=== PATIENT | female | born 1980 | race Caucasian/White ===

== ENCOUNTER 2018-04-24 20:36 | Observation (INO) | payer OTHER ==
--- NOTE | 2018-04-24 22:42 | PDOC ---
History of Present Illness - General Chief Complaint: Alcohol intoxication Stated Complaint: INTOX Time Seen by Provider: 04/24/18 22:24 History Source: Patient, Spouse - History of Present Illness Initial Comments: 04/25/18 05:45 37-year-old female with history of alcohol abuse, substance abuse brought in by ambulance for evaluation of alcohol intoxication. Patient reports that she only had 3 drinks with coke, denies drinking regularly. Normocephalic no sign of head injury. Patient reports that she had a seizure activity 3 days ago as per patient which is unrelated to alcohol withdrawal.She needs to go to detox prior to returning home patient reports that she has no interest in going at this time.. 04/25/18 05:48 Past History - Past Medical History Allergies/Adverse Reactions: Allergies Allergy/AdvReac Type Severity Reaction Status Date / Time No Known Allergies Allergy Verified 04/24/18 22:44 Home Medications: Ambulatory Orders Buprenorphine HCl/Naloxone HCl [Suboxone 4 mg-1 mg Sl Film] 1 each SL TID Review of Systems - Review of Systems Able to Perform ROS?: Yes Is the patient limited Venezuelan proficient: No Psychiatric: Yes: Other (alcohol intoxication) *Physical Exam - Vital Signs 04/25/18 05:59 Last Vital Signs Temp Pulse Resp BP Pulse Ox 98.1 F 74 18 100/62 97 04/24/18 21:10 04/25/18 03:20 04/25/18 03:20 04/25/18 03:20 04/25/18 03:20 - Physical Exam General Appearance: Yes: Appropriately Dressed, Alcohol on Breath, Intoxicated, Other (slurr speech, ) Respiratory/Chest: positive: Lungs Clear, Normal Breath Sounds Gastrointestinal/Abdominal: positive: Normal Bowel Sounds, Soft. negative: Tender Musculoskeletal: positive: Normal Inspection Extremity: positive: Normal Capillary Refill, Normal Inspection, Normal Range of Motion Integumentary: positive: Normal Color, Dry, Warm, Ecchymosis (right upper arm) Neurologic: positive: Fully Oriented, Alert, Normal Mood/Affect ED Treatment Course - LABORATORY CBC & Chemistry Diagram: 04/25/18 00:28 04/25/18 00:28 Medical Decision Making - Medical Decision Making A: alcohol intoxication P: cbc cmp banana bag ua utox librium patient placed on Short stay obs 06/05/18 06:06 patient is asleep. 04/25/18 06:13 04/25/18 06:14 *DC/Admit/Observation/Transfer Diagnosis at time of Disposition: Alcohol intoxication Qualifiers: Complication of substance-induced condition: uncomplicated Qualified Code(s): F10.920 - Alcohol use, unspecified with intoxication, uncomplicated - Discharge Dispostion Condition at time of disposition: Fair Decision to Admit order: Yes - Referrals - Patient Instructions - Post Discharge Activity
[2018-04-24 22:44] VITALS: BMI 20.9
[2018-04-25] MEDS ORDERED: FOLIC ACID INJECTION - 1 MG, THIAMINE HCL 100 MG, MULTIVIT INJECTION ADULT 10 ML in SOD... IVPB ONE (00:23)
[2018-04-25 00:44] LABS: BASO % 0.9 % (0-2.0); EOS % 0.7 % (0-4.5); HEMATOCRIT 35.6 % (32.4-45.2); HEMOGLOBIN 12.3 GM/dL (10.7-15.3); LYMPH % 28.5 % (8-40); MCH 34.5 pg (25.7-33.7); MCHC 34.5 g/dl (32.0-36.0); MEAN PLT VOLUME 7.2 fl (7.5-11.1); MONO % 7.3 % (3.8-10.2); NEUT % 62.6 % (42.8-82.8); PLATELET COUNT 464 K/MM3 (134-434); RBC 3.56 M/mm3 (3.60-5.2); RDW 13.3 % (11.6-15.6); WHITE BLOOD COUNT 5.3 K/mm3 (4.0-10.0)
[2018-04-25 00:59] LABS: INR 1.04 (0.82-1.09); PROTHROMBIN TIME (PATIENT) 11.8 SEC (9.7-13.0)
[2018-04-25] MEDS ORDERED: chlordiazePOXIDE HCL 25 MG CAPSULE PO ONE (01:06)
[2018-04-25] MEDS ORDERED: chlordiazePOXIDE HCL 25 MG CAPSULE ONE (01:08)
[2018-04-25 01:09] LABS: ALBUMIN 3.6 g/dl (3.4-5.0); ANION GAP 8 (8-16); BILIRUBIN,TOTAL 0.3 mg/dL (0.2-1.0); BLOOD UREA NITROGEN 14 mg/dL (7-18); CALCIUM 8.4 mg/dL (8.5-10.1); CHLORIDE 106 mmol/L (98-107); CO2 31 mmol/L (21-32); CREATININE 0.6 mg/dL (0.55-1.02); GLUCOSE,RANDOM 98 mg/dL (74-106); POTASSIUM 4.4 mmol/L (3.5-5.1); SALICYLATE < 1.70 mg/dL; SGOT/AST 97 U/L (15-37); SGPT/ALT 58 U/L (12-78); SODIUM 145 mmol/L (136-145)
[2018-04-25 01:10] LABS: ALK PHOS 101 U/L (45-117)
[2018-04-25 01:11] LABS: ACETAMINOPHEN <2.0 ug/mL
[2018-04-25 07:06] VITALS: BP 105/69; PULSE 90; TEMP 98.3
--- NOTE | 2018-04-25 07:48 | HP ---
CHIEF COMPLAINT: " Alcohol intoxication" PCP: Dr. Fu (At [facility]) HISTORY OF PRESENT ILLNESS: Patient is a 37 year old female was brought in by her via EMS for "alcohol intoxication". As per the patient, she had three vodka drinks with soda yesterday and all of a sudden her "dad" called EMS and was brought in here. Patient mentions she was sitting comfortably in her couch prior to EMS arrival, didn't have any symptoms. Denies headache, loc, seizure, chest pain, sob, cough, palpitation, abdominal pain, nausea or vomiting. States that she has a h/o seizure dx during childhood, not on medication, last seizure was 1 week ago for which she was admitted at [facility], head CT was negative and was sent home as per the patient. Bowel/Bladder habit normal. Sleep/Appetite normal. Spoke with the patient's over the phone. He mentions that patient is an alcoholic, drinks vodka daily. About a week ago, she was at [facility] for alcohol withdrawal seizure, was admitted in ICU for 3-4 days. After discharging her home, she again started drinking alcohol daily, can drink a bottle of Vodka everyday. Yesterday, she was completely intoxicated hence brought in to the ED for further evaluation. Both patient and agrees for detox at [facility]. ER course was notable for: (1) Afebrile, hemodynamically stable, Utox- alcohol level- 393.6 (2) IV Banana bag, librium 50mg PO once Recent Travel: None PAST MEDICAL HISTORY: Alcohol abuse (was in rehab in 2016 for detox); Seizure not on meds; Anorexia Nervosa PAST SURGICAL HISTORY: L4-L5 removal in 2016; 1 Ceaserian section Social History: Smoking: Never smoked Alcohol: Started drinking since age 29; last drink yesterday; drinks twice a week. Drugs: Opiod dependence for back pain, now on suboxone. Family History: Non contributory Allergies No Known Allergies Allergy (Verified 04/24/18 22:44) HOME MEDICATIONS: Home Medications Medication Instructions Recorded Buprenorphine HCl/Naloxone HCl 1 each SL TID 04/24/18 [Suboxone 4 mg-1 mg Sl Film] REVIEW OF SYSTEMS CONSTITUTIONAL: Absent: fever, chills, diaphoresis, generalized weakness, malaise, loss of appetite, weight change HEENT: Absent: rhinorrhea, nasal congestion, throat pain, throat swelling, difficulty swallowing, mouth swelling, ear pain, eye pain, visual changes CARDIOVASCULAR: Absent: chest pain, syncope, palpitations, irregular heart rate, lightheadedness , peripheral edema RESPIRATORY: Absent: cough, shortness of breath, dyspnea with exertion, orthopnea, wheezing, stridor, hemoptysis GASTROINTESTINAL: Absent: abdominal pain, abdominal distension, nausea, vomiting, diarrhea, constipation, melena, hematochezia GENITOURINARY: Absent: dysuria, frequency, urgency, hesitancy, hematuria, flank pain, genital pain MUSCULOSKELETAL: Absent: myalgia, arthralgia, joint swelling, back pain, neck pain SKIN: Absent: rash, itching, pallor HEMATOLOGIC/IMMUNOLOGIC: Absent: easy bleeding, easy bruising, lymphadenopathy, frequent infections ENDOCRINE: Absent: unexplained weight gain, unexplained weight loss, heat intolerance, cold intolerance NEUROLOGIC: Absent: headache, focal weakness or paresthesias, dizziness, unsteady gait, seizure, mental status changes, bladder or bowel incontinence PSYCHIATRIC: Absent: anxiety, depression, suicidal or homicidal ideation, hallucinations. PHYSICAL EXAMINATION Vital Signs - 24 hr 04/24/18 04/25/18 04/25/18 21:10 03:20 07:06 Temperature 98.1 F 98.3 F Pulse Rate 97 H Pulse Rate [ 74 90 Right Apical] Respiratory 19 18 18 Rate Blood Pressure 121/82 Blood Pressure 100/62 105/69 [Right Arm] O2 Sat by Pulse 96 97 98 Oximetry (%) GENERAL: Young female, sitting comfortably in bed, Awake, alert, and fully oriented, in no acute distress. HEAD: Normal with no signs of trauma. EYES: EOM intact, no pallor or icterus. EARS, NOSE, THROAT: Ears normal. Dry mucous membranes. NECK: Supple. LUNGS: B/L Breath sounds equal, clear to auscultation bilaterally. No wheezes, and no crackles. No accessory muscle use. HEART: Regular rate and rhythm, normal S1 and S2 without murmur. ABDOMEN: Soft, nontender, not distended, normoactive bowel sounds, no guarding, no rebound, no masses. No hepatomegaly or splenomegaly. MUSCULOSKELETAL: Normal range of motion at all joints. No bony deformities or tenderness. No CVA tenderness. UPPER EXTREMITIES: 2+ pulses, warm, well-perfused. No cyanosis. No clubbing. No peripheral edema. LOWER EXTREMITIES: 2+ pulses, warm, well-perfused. No calf tenderness. No peripheral edema. NEUROLOGICAL: No facial droop, Cranial nerves II-XII intact. Normal speech. Normal gait. PSYCHIATRIC: Cooperative. Good eye contact. Appropriate mood and affect. SKIN: Warm, dry, normal turgor, no rashes or lesions noted, normal capillary refill. Laboratory Results - last 24 hr 04/25/18 04/25/18 04/25/18 00:28 00:28 00:28 WBC 5.3 RBC 3.56 L Hgb 12.3 Hct 35.6 MCV 100.0 H MCH 34.5 H MCHC 34.5 RDW 13.3 Plt Count 464 H MPV 7.2 L Absolute Neuts (auto) 3.3 Neutrophils % 62.6 Lymphocytes % 28.5 Monocytes % 7.3 Eosinophils % 0.7 Basophils % 0.9 Nucleated RBC % 0 PT with INR 11.80 INR 1.04 Sodium 145 Potassium 4.4 Chloride 106 Carbon Dioxide 31 Anion Gap 8 BUN 14 Creatinine 0.6 Creat Clearance w eGFR > 60 Random Glucose 98 Calcium 8.4 L Total Bilirubin 0.3 AST 97 H ALT 58 Alkaline Phosphatase 101 Total Protein 7.0 Albumin 3.6 Serum , Qual Salicylates Acetaminophen Alcohol, Quantitative 04/25/18 04/25/18 00:28 00:28 WBC RBC Hgb Hct MCV MCH MCHC RDW Plt Count MPV Absolute Neuts (auto) Neutrophils % Lymphocytes % Monocytes % Eosinophils % Basophils % Nucleated RBC % PT with INR INR Sodium Potassium Chloride Carbon Dioxide Anion Gap BUN Creatinine Creat Clearance w eGFR Random Glucose Calcium Total Bilirubin AST ALT Alkaline Phosphatase Total Protein Albumin Serum , Qual Negative Salicylates < 1.70 Acetaminophen <2.0 Alcohol, Quantitative 393.6 H* ASSESSMENT/PLAN: Patient is a 37 year old female with significant past medical history of alcohol abuse, seizure not on meds, anorexia was brought in by her dad via EMS for "alcohol intoxication". # Acute alcohol intoxication Alcohol level" 393.6 repeat Alcohol level 199 CIWA score- 4 at this time Received 1 banana bag and Librium 50mg PO once Admitted in Med-Surg/Obs Continue IV NS @ 83 mls/hr Watch for signs of withdrawal. If needed, will start her on Librium protocol Mg, Phos pending Accepted for detox at [facility] by Dr. Starks. Patient agrees. # Seizure- no seizure activity at this time. # Opiod dependence on Suboxone Takes Suboxone TID, awaiting for confirmation ( is bringing the prescription from home) Pt states she hasn't taken it since few days. # FEN IV NS @ 83 mls/hr Electrolytes WNL Regular diet # Prophylaxis For DVT: early ambulation For GI: Not indicated # Code Status: Full Code # Dispo: Pending [facility] admission. Illness, Investigation and Plan of care explained to the patient and her . They verbalized understanding. Case discussed with Dr. Bustos. Visit type - Emergency Visit Emergency Visit: Yes ED Registration Date: 04/25/18 Care time: The patient presented to the Emergency Department on the above date and was hospitalized for further evaluation of their emergent condition. - New Patient This patient is new to me today: Yes Date on this admission: 04/25/18 - Critical Care Critical Care patient: No Hospitalist Screening - Colonoscopy Questionnaire Colonoscopy Questionnaire: Colonoscopy Questionnaire - Patient: 50 - 75 years old and never had a screening colonoscopy: Unknown History of colon or rectal polyps, or CA: Unknown History of IBD, Crohn's disease or UC: Unknown History of abdominal radiation therapy as a child: Unknown - Relative: 1 with colon or rectal CA, or polyps at age 60 or younger: Unknown Colon or rectal CA diagnosed at age 45 or younger: Unknown Multiple relatives with colon or rectal CA: Unknown - Outcome: Screening Result: Negative Screen
[2018-04-25] MEDS ORDERED: SODIUM CHLORIDE 1,000 ML IV SCH (08:30)
--- NOTE | 2018-04-25 10:48 | DS ---
Physical Exam: SUBJECTIVE: Patient seen and examined at bed side. No complaints. Denies headache, dizziness, blurring of vision, chest pain, sob, cough, palpitation, abdominal pain, nausea or vomiting. Sleep/Appetite normal. OBJECTIVE: Vital Signs Period Temp Pulse Resp BP Sys/Mojica Pulse Ox Last 24 Hr 98.1 F-98.3 F 74-97 18-19 100-121/62-82 96-99 PHYSICAL EXAM GENERAL: Young female, sitting comfortably in bed, Awake, alert, and fully oriented, in no acute distress. HEAD: Normal with no signs of trauma. EYES: EOM intact, no pallor or icterus. EARS, NOSE, THROAT: Ears normal. Dry mucous membranes. NECK: Supple. LUNGS: B/L Breath sounds equal, clear to auscultation bilaterally. No wheezes, and no crackles. No accessory muscle use. HEART: Regular rate and rhythm, normal S1 and S2 without murmur. ABDOMEN: Soft, nontender, not distended, normoactive bowel sounds, no guarding, no rebound, no masses. No hepatomegaly or splenomegaly. MUSCULOSKELETAL: Normal range of motion at all joints. No bony deformities or tenderness. No CVA tenderness. UPPER EXTREMITIES: 2+ pulses, warm, well-perfused. No cyanosis. No clubbing. No peripheral edema. LOWER EXTREMITIES: 2+ pulses, warm, well-perfused. No calf tenderness. No peripheral edema. NEUROLOGICAL: No facial droop, Cranial nerves II-XII intact. Normal speech. Normal gait. PSYCHIATRIC: Cooperative. Good eye contact. Appropriate mood and affect. SKIN: Warm, dry, normal turgor, no rashes or lesions noted, normal capillary refill. LABS Laboratory Results - last 24 hr 04/25/18 04/25/18 04/25/18 00:28 00:28 00:28 WBC 5.3 RBC 3.56 L Hgb 12.3 Hct 35.6 MCV 100.0 H MCH 34.5 H MCHC 34.5 RDW 13.3 Plt Count 464 H MPV 7.2 L Absolute Neuts (auto) 3.3 Neutrophils % 62.6 Lymphocytes % 28.5 Monocytes % 7.3 Eosinophils % 0.7 Basophils % 0.9 Nucleated RBC % 0 PT with INR 11.80 INR 1.04 Sodium 145 Potassium 4.4 Chloride 106 Carbon Dioxide 31 Anion Gap 8 BUN 14 Creatinine 0.6 Creat Clearance w eGFR > 60 Random Glucose 98 Calcium 8.4 L Total Bilirubin 0.3 AST 97 H ALT 58 Alkaline Phosphatase 101 Total Protein 7.0 Albumin 3.6 Serum , Qual Salicylates Acetaminophen Alcohol, Quantitative 04/25/18 04/25/18 00:28 00:28 WBC RBC Hgb Hct MCV MCH MCHC RDW Plt Count MPV Absolute Neuts (auto) Neutrophils % Lymphocytes % Monocytes % Eosinophils % Basophils % Nucleated RBC % PT with INR INR Sodium Potassium Chloride Carbon Dioxide Anion Gap BUN Creatinine Creat Clearance w eGFR Random Glucose Calcium Total Bilirubin AST ALT Alkaline Phosphatase Total Protein Albumin Serum , Qual Negative Salicylates < 1.70 Acetaminophen <2.0 Alcohol, Quantitative 393.6 H* HOSPITAL COURSE: Date of Admission:04/25/18 Date of Discharge: 04/25/18 Patient is a 37 year old female with significant past medical history of alcohol abuse, seizure not on meds, anorexia, chronic back pain was brought in by via EMS for "alcohol intoxication". Spoke with the patient's over the phone. He mentions that patient is an alcoholic, drinks vodka daily. About a week ago, she was at [place] for alcohol withdrawal seizure, was admitted in ICU for 3-4 days. After discharging her home, she started drinking alcohol daily, can drink a bottle of Vodka. Yesterday, she was completely intoxicated hence brought in to the ED for further evaluation. Review of symptoms negative. No suicidal ideation at this time. Both patient and agrees for detox at [facility]. On arrival to the ED, vital signs were stable. Alcohol level was 393, AST was 97. Rest of the labs were unremarkable. Was given 1 banana bag and Librium 50mg PO once in the ED. Repeat alcohol level is 199. CIWA score was 4. Spoke with Dr. Early at [facility]. He recommended to send the patient to [facility] for further evaluation and would detox if needed. Patient also has h/o opiod dependence for chronic back pain on Suboxone TID. Awaiting for to bring the prescription for confirmation. Illness, Investigation and Plan of care explained to the patient and her . They verbalized understanding. Case discussed with Dr. Bustos. Minutes to complete discharge: 45 Discharge Summary Reason For Visit: ALCOHOLIC INTOXIFICATION Current Active Problems Alcohol intoxication (Acute) Condition: Fair - Instructions Diet, Activity, Other Instructions: You were admitted for alcohol intoxication. We are sending you to [facility], they will reevaluate you for detox. Please stop taking alcohol as it causes adverse effects on your health. Return to the ED immediately if you develop any new symptoms. Follow up with PCP in a week after you get discharged from [facility]. Disposition: HOME - Home Medications Comprehensive Discharge Medication List: Ambulatory Orders Buprenorphine HCl/Naloxone HCl [Suboxone 4 mg-1 mg Sl Film] 1 each SL TID This patient is new to me today: Yes Date on this admission: 04/25/18 Emergency Visit: Yes ED Registration Date: 04/25/18 Care time: The patient presented to the Emergency Department on the above date and was hospitalized for further evaluation of their emergent condition. Critical Care patient: No - Discharge Referral Referred to [facility] Med P.C.: No
[2018-04-25 15:04] LABS: MAGNESIUM 2.1 mg/dL (1.8-2.4); PHOSPHOROUS 3.4 mg/dL (2.5-4.9)
[2018-04-25 15:52] LABS: MAGNESIUM 2.2 mg/dL (1.8-2.4); PHOSPHOROUS 4.8 mg/dL (2.5-4.9)
--- NOTE | 2018-04-25 17:53 | PN ---
Teaching Attending Note Name of Resident: Cinthya North ATTENDING PHYSICIAN STATEMENT I saw and evaluated the patient. I reviewed the resident's note and discussed the case with the resident. I agree with the resident's findings and plan as documented with exceptions below. SUBJECTIVE: 37 yof with PMHx of ETOH abuse, admitted for alcohol detox. Currently ambulating in the ED, awaiting transfer to detox center. 12 point ROS done, neg for fevers, chills, abdominal pain, nausea, vomiting, tremors, anxiety, chest pain, palpitations, dyspnea, dizziness or new concerns. OBJECTIVE: Vital Signs Period Temp Pulse Resp BP Sys/Mojica Pulse Ox Last 24 Hr 98.1 F-98.3 F 74-97 18-19 100-121/62-82 96-99 Intake & Output 04/22/18 04/23/18 04/24/18 04/25/18 23:59 23:59 23:59 23:59 Weight 130 lb GENERAL: Awake, alert, and fully oriented, in no acute distress. HEAD: Normal with no signs of trauma. EYES: Pupils equal, round and reactive to light, extraocular movements intact, sclera anicteric, conjunctiva clear. No lid lag. EARS, NOSE, THROAT: Ears normal, nares patent, oropharynx clear without exudates. Moist mucous membranes. NECK: soft, supple LUNGS: Breath sounds equal, clear to auscultation bilaterally. No wheezes, and no crackles. No accessory muscle use. HEART: S1S2 regular. ABDOMEN: Soft, nontender, not distended, normoactive bowel sounds, no guarding, no rebound MUSCULOSKELETAL: Normal range of motion at all joints. No bony deformities or tenderness. No CVA tenderness. UPPER EXTREMITIES: 2+ pulses, warm, well-perfused. No cyanosis. No clubbing. No peripheral edema. LOWER EXTREMITIES: 2+ pulses, warm, well-perfused. No calf tenderness. No peripheral edema. NEUROLOGICAL: Cranial nerves II-XII intact. Normal speech. Normal gait. PSYCHIATRIC: Cooperative. Good eye contact. Appropriate mood and affect. SKIN: Warm, dry, normal turgor, no rashes or lesions noted, normal capillary refill. Home Medications Medication Instructions Recorded Buprenorphine HCl/Naloxone HCl 1 each SL TID 04/24/18 [Suboxone 4 mg-1 mg Sl Film] Laboratory Results - last 24 hr 04/25/18 04/25/18 04/25/18 00:28 00:28 00:28 WBC 5.3 RBC 3.56 L Hgb 12.3 Hct 35.6 MCV 100.0 H MCH 34.5 H MCHC 34.5 RDW 13.3 Plt Count 464 H MPV 7.2 L Absolute Neuts (auto) 3.3 Neutrophils % 62.6 Lymphocytes % 28.5 Monocytes % 7.3 Eosinophils % 0.7 Basophils % 0.9 Nucleated RBC % 0 PT with INR 11.80 INR 1.04 Sodium 145 Potassium 4.4 Chloride 106 Carbon Dioxide 31 Anion Gap 8 BUN 14 Creatinine 0.6 Creat Clearance w eGFR > 60 Random Glucose 98 Calcium 8.4 L Phosphorus 4.8 Magnesium 2.2 Total Bilirubin 0.3 AST 97 H ALT 58 Alkaline Phosphatase 101 Total Protein 7.0 Albumin 3.6 Serum , Qual Salicylates Acetaminophen Alcohol, Quantitative 04/25/18 04/25/18 04/25/18 00:28 00:28 00:28 WBC RBC Hgb Hct MCV MCH MCHC RDW Plt Count MPV Absolute Neuts (auto) Neutrophils % Lymphocytes % Monocytes % Eosinophils % Basophils % Nucleated RBC % PT with INR INR Sodium Potassium Chloride Carbon Dioxide Anion Gap BUN Creatinine Creat Clearance w eGFR Random Glucose Calcium Phosphorus Magnesium Cancelled Total Bilirubin AST ALT Alkaline Phosphatase Total Protein Albumin Serum , Qual Negative Salicylates < 1.70 Acetaminophen <2.0 Alcohol, Quantitative 393.6 H* 04/25/18 04/25/18 00:28 09:50 WBC RBC Hgb Hct MCV MCH MCHC RDW Plt Count MPV Absolute Neuts (auto) Neutrophils % Lymphocytes % Monocytes % Eosinophils % Basophils % Nucleated RBC % PT with INR INR Sodium Potassium Chloride Carbon Dioxide Anion Gap BUN Creatinine Creat Clearance w eGFR Random Glucose Calcium Phosphorus Cancelled 3.4 Magnesium 2.1 Total Bilirubin AST ALT Alkaline Phosphatase Total Protein Albumin Serum , Qual Salicylates Acetaminophen Alcohol, Quantitative 199.7 H* ASSESSMENT AND PLAN: 37 yof for ETOH detox -ETOH abuse/dependence -Alcohol withdrawal -Opioid dependence Plan: no active concerns for withdrawal, ambulating well. Librium detox. Discussed with [facility], accepted for transfer. dc to [facility] today. Plan discussed with patient in detail, all questions answered. Total time spent 65 min.
== END 2018-04-25 13:30 | disposition home or self-care (01) ==
LOC: JER 20:36 → JERBED 04-25 01:05
PROVIDERS: ADMIT Internal Medicine; ATTEND Hospitalist
PROC: 3E033GC Introduction of Other Therapeutic Substance into Peripheral Vein, Percutaneous Approach (ICD-10-PCS; principal; 2018-04-25)
DX: F10.129 Alcohol abuse with intoxication, unspecified (principal); G40.909 Epilepsy, unspecified, not intractable, without status epilepticus
CPT/HCPCS: 36415; 80053; 80307; 83735; 84100; 84703; 85025; 85610; 96365; 96366; 99284-25; G0378; J7030

== ENCOUNTER 2018-04-25 15:53 | Inpatient (IN) | payer OTHER ==
[2018-04-25 18:55] VITALS: BMI 18.9
--- NOTE | 2018-04-25 20:02 | HP ---
CIWA Score - CIWA Score Nausea/Vomitin-No Nausea/No Vomiting Muscle Tremors: 2 Anxiety: 3 Agitation: 3 Paroxysmal Sweats: 2 Orientation: 0-Oriented Tacttile Disturbances: 2-Mild Itch/Numbness/Burn Auditory Disturbances: 0-None Visual Disturbances: 0-None Headache: 0-None Present CIWA-Ar Total Score: 12 Admission ROS S - HPI Chief Complaint: " I need to get family back together, I've drinking non-stop" Allergies/Adverse Reactions: Allergies Allergy/AdvReac Type Severity Reaction Status Date / Time No Known Allergies Allergy Verified 04/24/18 22:44 History of Present Illness: Patient is a 37 year old female with hx of alcohol dependence comes in today after evaluated at [facility] for alcohol intoxication, as per patient she states that she has a h/o seizure dx during childhood, not on medication, last seizure , alcohol related was 1 week ago and hit her head, was admitted at [facility] for 3-4 days, upon discharge patient continues to drink daily. PMHX: hx of eating disorder, anxiety, depression, chronic pain, panic attacks. Denies suicidal / homicidal ideation. Denies hx of suicide attempts. Patient also goes by shania last name CHRISTINA Search Terms: curtis fuentes, 1980 Search Date: 04/25/2018 07:53:12 PM The Drug Utilization Report below displays all of the controlled substance prescriptions, if any, that your patient has filled in the last twelve months. The information displayed on this report is compiled from pharmacy submissions to the Department, and accurately reflects the information as submitted by the pharmacies. This report was requested by: Sasha Harrison | Reference #: [id number] Others' Prescriptions Patient Name: Curtis Fuentes Date: 1980 Address: [address] [place] [address] [address] [place] [address] Sex: Female Rx Written Rx Dispensed Drug Quantity Days Supply Prescriber Name 04/21/2018 04/21/2018 suboxone 8 mg-2 mg sl film 90 30 Andrea Rodriguez MD 03/23/2018 03/29/2018 suboxone 8 mg-2 mg sl film 42 14 Andrea Rodriguez MD 03/17/2018 03/20/2018 suboxone 8 mg-2 mg sl film 21 7 Andrea Rodriguez MD Patient Name: Curtis Fuentes Date: 1980 Address: [address] [place] [id number] Sex: Female Rx Written Rx Dispensed Drug Quantity Days Supply Prescriber Name 03/20/2018 03/21/2018 oxycodone hcl 20 mg tablet 120 30 ShCarlee horta S 02/23/2018 03/01/2018 oxycodone hcl 30 mg tablet 90 30 Shue, Carlee S 02/20/2018 02/20/2018 oxycodone hcl 30 mg tablet 12 4 Jorge L Reeves) 02/20/2018 02/20/2018 clonazepam 0.5 mg tablet 28 14 Jorge L Reeves) Patient Name: Curtis Fuentes Date: 1980 Address: [address] [place] [id number] Sex: Female Rx Written Rx Dispensed Drug Quantity Days Supply Prescriber Name 03/03/2018 03/09/2018 clonazepam 0.5 mg tablet 20 20 Arin Hawley MD 12/12/2017 12/12/2017 zolpidem tartrate 10 mg tablet 30 30 Jeremias Wilcox MD 12/12/2017 12/12/2017 alprazolam 0.25 mg tablet 90 30 Jeremias Wilcox MD Exam Limitations: No Limitations - Ebola screening Have you traveled outside of the country in the last 21 days: No Have you had contact with anyone from an Ebola affected area: No Have you been sick,other than usual withdrawal symptoms: No Do you have a fever: No - Review of Systems Constitutional: Chills, Loss of Appetite, Changes in sleep, Unintentional Wgt. Loss EENT: reports: No Symptoms Reported Respiratory: reports: No Symptoms reported Cardiac: reports: No Symptoms Reported GI: reports: Poor Appetite, Poor Fluid Intake : reports: No Symptoms Reported Musculoskeletal: reports: Back Pain Integumentary: reports: No Symptoms Reported Neuro: reports: See HPI, Seizure Endocrine: reports: Increased Thirst Hematology: reports: No Symptoms Reported Psychiatric: reports: Orientated x3, Anxious Other Systems: Reviewed and Negative Patient History - Patient Medical History Hx Anemia: No Hx Asthma: No Hx Chronic Obstructive Pulmonary Disease (COPD): No Hx Cancer: No Hx Cardiac Disorders: No Hx Congestive Heart Failure: No Hx Hypertension: No Hx Hypercholesterolemia: No Hx Pacemaker: No HX Cerebrovascular Accident: No Hx Seizures: Yes (alcohol related last episode a week ago ) Hx Dementia: No Hx Diabetes: No Hx Gastrointestinal Disorders: No Hx Liver Disease: No Hx Genitourinary Disorders: No Hx Sexually Transmitted Disorders: No Hx Renal Disease (ESRD): No Hx Thyroid Disease: No Hx Human Immunodeficiency Virus (HIV): No Hx Hepatitis C: No Hx Depression: Yes Hx Suicide Attempt: No Hx Bipolar Disorder: No Hx Schizophrenia: No - Patient Surgical History Past Surgical History: Yes Hx Neurologic Surgery: No Hx Cataract Extraction: No Hx Cardiac Surgery: No Hx Lung Surgery: No Hx Breast Surgery: No Hx Breast Biopsy: No Hx Abdominal Surgery: No Hx Appendectomy: No Hx Cholecystectomy: No Hx Genitourinary Surgery: No Hx Section: No Hx Orthopedic Surgery: Yes (Distectomy ) Hx Hysterectomy: No Anesthesia Reaction: No - PPD History Previous Implant?: No Documented Results: Negative w/o proof Implanted On Prior R Admission?: No PPD to be Administered?: Yes - Reproductive History Patient is a Female of Child Bearing Age (11 -55 yrs old): Yes Patient : No - Smoking Cessation Smoking history: Never smoked Have you smoked in the past 12 months: No Hx Chewing Tobacco Use: No Initiated information on smoking cessation: No - Substance & Tx. History Hx Alcohol Use: Yes Hx Substance Use: Yes Substance Use Type: Alcohol Hx Substance Use Treatment: No - Substances Abused Alcohol Route: Oral Frequency: Daily Amount used: liquor- 1/2 pint, Age of first use: 36 Date of Last Use: 04/24/18 Family Disease History - Family Disease History Family History: Unable to Obtain Admission Physical Exam BHS - Vital Signs Vital Signs: Vital Signs - 24 hr 04/25/18 18:53 Temperature 98.7 F Pulse Rate 83 Respiratory 18 Rate Blood Pressure 139/93 - Physical General Appearance: Yes: No Apparent Distress, Nourished, Appropriately Dressed , Tremorous, Sweating, Anxious HEENTM: Yes: EOMI, Hearing grossly Normal, Normal ENT Inspection, Normocephalic , Normal Voice, JANENE, Pharynx Normal, Tm's normal Respiratory: Yes: Chest Non-Tender, Lungs Clear, Normal Breath Sounds, No Respiratory Distress, No Accessory Muscle Use Neck: Yes: No masses,lesions,Nodules, Trachea in good position Breast: Yes: Breast Exam Deferred Cardiology: Yes: Regular Rhythm, Regular Rate Abdominal: Yes: Normal Bowel Sounds, Non Tender, Flat, Soft Genitourinary: Yes: Within Normal Limits Back: Yes: Normal Inspection Musculoskeletal: Yes: full range of Motion, Gait Steady, Pelvis Stable Extremities: Yes: Normal Capillary Refill, Normal Inspection, Normal Range of Motion, Non-Tender Neurological: Yes: service clerk II-XII NML intact, Fully Oriented, Alert, Motor Strength 5/5, Depressed Affect (tearful duirng assessment) Integumentary: Yes: Normal Color, Warm, Diaphoresis Lymphatic: Yes: Within Normal Limits - Diagnostic (1) Alcohol dependence with withdrawal Current Visit: Yes Status: Acute Qualifiers: Complication of substance-induced condition: uncomplicated Qualified Code(s ): F10.230 - Alcohol dependence with withdrawal, uncomplicated (2) Opioid dependence on agonist therapy Current Visit: Yes Status: Acute Comment: On suboxone 8mg TID (3) Chronic back pain Current Visit: Yes Status: Chronic (4) Anxious mood Current Visit: Yes Status: Acute Cleared for Admission [facility] - Detox or Rehab [facility] Level of Care: Medically Managed Detox Regimen/Protocol: Librium [facility] Breath Alcohol Content Breath Alcohol Content: 0 Urine Pregancy Test - Result Urine Test Results: Negative- NO Line Present Urine Drug Screen - Results Drug Screen Negative: No Urine Drug Screen Results: BZO-Benzodiazepines
[2018-04-25] MEDS ORDERED: NICOTINE POLACRILEX 2 MG GUM BUC PRN (20:50)
[2018-04-25] MEDS ORDERED: P-EPHED 60MG/TRIPROLIDI 2.5MG TABLET PO PRN (20:50)
[2018-04-25] MEDS ORDERED: chlordiazePOXIDE HCL 25 MG CAPSULE PO ONE (20:50)
[2018-04-25] MEDS ORDERED: LOPERAMIDE HCL 2 MG CAPSULE PO PRN (20:50)
[2018-04-25] MEDS ORDERED: MENTHOL/PHENOL 1 EACH UD MM PRN (20:50)
[2018-04-25] MEDS ORDERED: IBUPROFEN 400 MG TABLET (FP) PO PRN (20:50)
[2018-04-25] MEDS ORDERED: MAGNESIUM HYDROX 2400MG/30ML ORAL SUSPENSION 30 ML CUP PO PRN (20:50)
[2018-04-25] MEDS ORDERED: MAGNESIUM CITRATE 300 ML BOTTLE PO PRN (20:50)
[2018-04-25] MEDS ORDERED: MAG HYDROX/AL HYDROX/SIMETH 30 ML UNIT-DOSE CUP PO PRN (20:50)
[2018-04-25] MEDS ORDERED: guaiFENesin/D-METHORPHAN HB 10 ML UNIT-DOSE CUPS PO PRN (20:50)
[2018-04-25] MEDS ORDERED: chlordiazePOXIDE HCL 25 MG CAPSULE PO PRN (20:50)
[2018-04-25] MEDS ORDERED: GLYCERIN 1 RECTAL SUPPOSITORY, ADULT RC PRN (20:58)
[2018-04-25] MEDS ORDERED: MELATONIN 5 MG TABLETS PO PRN (22:00)
[2018-04-26] MEDS: chlordiazePOXIDE HCL 25 MG CAPSULE PO SCH ×5 (01:36→22:24)
[2018-04-26] MEDS: BUPRENORPHINE/NALOXONE 8 MG/2 MG FILM PACKET SL SCH ×4 (01:37→22:24)
[2018-04-26] MEDS: THIAMINE HCL 100 MG TABLET (FP) PO SCH ×2 (01:37→22:24)
--- NOTE | 2018-04-26 07:31 | CONSULT ---
[facility] Psychiatric Consult - Data Date of interview: 04/26/18 Admission source: [facility] Identifying data: This is a 37 year old female, , mother of three, living with family, unemployed on SSD, with no psychiatric hospitalization history, with history of alcohol dependence, seeking for detox, reports Alcohol wotudrawal symptoms. Reports currently on Suboxone 8mg po tid . Substance Abuse History: - Smoking Cessation. Smoking history: Never smoked. Have you smoked in the past 12 months: No. Hx Chewing Tobacco Use: No. Initiated information on smoking cessation: No. - Substance & Tx. History. Hx Alcohol Use: Yes. Hx Substance Use: Yes. Substance Use Type: Alcohol. Hx Substance Use Treatment: No. - Substances Abused. Alcohol. Route: Oral. Frequency: Daily. Amount used: liquor- 1/2 pint,. Age of first use: 36. Date of Last Use: 04/24/18 Medical History: LBP, Seizure history Psychiatric History: Patient reports history of depression and anxiety, panic attacks issues, reports no history of psychiatric hospitalizations, reports taking prior to admission: Zoloft 100mg po qhs, asking medications for anxiety, . Patient reports taking prior to admission Suboxone 8mg po tid. Physical/Sexual Abuse/Trauma History: Denies Additional Comment: Zoloft 100mg po qhs Mental Status Exam - Mental Status Exam Alert and Oriented to: Person Cognitive Function: Fair Patient Appearance: Unkempt Mood: Anxious Affect: Mood Congruent Patient Behavior: Cooperative Speech Pattern: Appropriate Voice Loudness: Normal Thought Process: Goal Oriented Thought Disorder: Being Controlled Hallucinations: Denies Suicidal Ideation: Denies Homicidal Ideation: Denies Insight/Judgement: Fair Sleep: Difficulty falling asleep Appetite: Fair Muscle strength/Tone: Mild Hypertonicity Gait/Station: Normal Additional Comments: Zoloft 100mg po qhs Psychiatric Findings - Problem List ([place] 1, 2,3) (1) Alcohol dependence with withdrawal Current Visit: Yes Status: Acute Qualifiers: Complication of substance-induced condition: uncomplicated Qualified Code(s ): F10.230 - Alcohol dependence with withdrawal, uncomplicated (2) Anxious mood Current Visit: Yes Status: Acute (3) Opioid dependence on agonist therapy Current Visit: Yes Status: Acute Comment: On suboxone 8mg TID (4) Alcohol intoxication Current Visit: No Status: Acute Qualifiers: Complication of substance-induced condition: uncomplicated Qualified Code(s ): F10.920 - Alcohol use, unspecified with intoxication, uncomplicated - Initial Treatment Plan Initial Treatment Plan: Zoloft 100mg po qhs. Vistaril 50mg po prn q4 for anxiety and agitation.
[2018-04-26 10:22] LABS: HEMATOCRIT 32.3 % (32.4-45.2); HEMOGLOBIN 11.1 GM/dL (10.7-15.3); MCH 34.7 pg (25.7-33.7); MCHC 34.2 g/dl (32.0-36.0); MEAN CELL VOLUME 101.3 fl (80-96); MEAN PLT VOLUME 8.1 fl (7.5-11.1); PLATELET COUNT 335 K/MM3 (134-434); RBC 3.19 M/mm3 (3.60-5.2); RDW 12.9 % (11.6-15.6); WHITE BLOOD COUNT 5.2 K/mm3 (4.0-10.0)
[2018-04-26] MEDS: PRENATAL VITAMINS W/ FOLIC ACID TABLET (FP) PO SCH (10:36)
[2018-04-26] MEDS: NICOTINE 14 MG/24 HOURS TOPICAL PATCH TD SCH (10:36)
[2018-04-26] MEDS: hydrOXYzine PAMOATE 50 MG CAPSULE (FP) PO PRN ×2 (10:37→22:27)
--- NOTE | 2018-04-26 11:06 | PN ---
S CIWA - CIWA Score Nausea/Vomitin Muscle Tremors: 3 Anxiety: 2 Agitation: 2 Paroxysmal Sweats: 1-Minimal Palms Moist Orientation: 0-Oriented Tacttile Disturbances: 1-Very Mild Itch/Numbness Auditory Disturbances: 1-Very Mild Visual Disturbances: 0-None Headache: 2-Mild CIWA-Ar Total Score: 15 S Progress Note (SOAP) Subjective: alert,irritable,anxious,interrupted sleep,tremor Objective: 04/26/18 11:04 Vital Signs Temperature 95.4 F L 04/26/18 09:35 Pulse Rate 72 04/26/18 09:35 Respiratory Rate 16 04/26/18 09:35 Blood Pressure 118/80 04/26/18 09:35 O2 Sat by Pulse Oximetry (%) Laboratory Last Values WBC 5.2 K/mm3 (4.0-10.0) 04/26/18 07:30 RBC 3.19 M/mm3 (3.60-5.2) L 04/26/18 07:30 Hgb 11.1 GM/dL (10.7-15.3) 04/26/18 07:30 Hct 32.3 % (32.4-45.2) L 04/26/18 07:30 MCV 101.3 fl (80-96) H 04/26/18 07:30 MCH 34.7 pg (25.7-33.7) H 04/26/18 07:30 MCHC 34.2 g/dl (32.0-36.0) 04/26/18 07:30 RDW 12.9 % (11.6-15.6) 04/26/18 07:30 Plt Count 335 K/MM3 (134-434) D 04/26/18 07:30 MPV 8.1 fl (7.5-11.1) D 04/26/18 07:30 labs pending Assessment: 04/26/18 11:05 withdrawal symptom Plan: continue detox
[2018-04-26 11:07] LABS: CHLORIDE 107 mmol/L (98-107); SODIUM 142 mmol/L (136-145)
[2018-04-26 11:20] LABS: ALBUMIN 3.1 g/dl (3.4-5.0); ALK PHOS 96 U/L (45-117); ANION GAP 8 (8-16); BILIRUBIN,TOTAL 0.5 mg/dL (0.2-1.0); BLOOD UREA NITROGEN 9 mg/dL (7-18); CALCIUM 8.3 mg/dL (8.5-10.1); CO2 27 mmol/L (21-32); CREATININE 0.5 mg/dL (0.55-1.02); GLUCOSE,RANDOM 90 mg/dL (74-106); SGPT/ALT 62 U/L (12-78)
[2018-04-26 11:21] LABS: SGOT/AST 84 U/L (15-37)
--- NOTE | 2018-04-26 11:53 | EKG ---
Test Reason : Blood Pressure : / mmHG Vent. Rate : 061 BPM Atrial Rate : 061 BPM P-R Int : 168 ms QRS Dur : 082 ms QT Int : 422 ms P-R-T Axes : 071 047 056 degrees QTc Int : 424 ms NORMAL SINUS RHYTHM NORMAL ECG NO PREVIOUS ECGS AVAILABLE Confirmed by ADAN ORTEZ, RODOLFO ([id number]) on 04/26/2018 11:53:10 AM Referred By: Confirmed By:RODOLFO ARELLANO MD
[2018-04-26 17:06] LABS: URINE APPEARANCE SLCLOUDY; URINE BILIRUBIN NEGATIVE (<2.0 mg/dL); URINE BLOOD NEGATIVE (NEGATIVE); URINE COLOR LTYELLOW; URINE GLUCOSE (UA) NEGATIVE (NEGATIVE); URINE KETONE NEGATIVE (NEGATIVE); URINE LEUK ESTERASE NEGATIVE (NEGATIVE); URINE NITRITE NEGATIVE (NEGATIVE); URINE PROTEIN NEGATIVE (NEGATIVE); URINE UROBILINOGEN NEGATIVE mg/dL (0.2-1.0)
[2018-04-26] MEDS: SERTRALINE HCL 50 MG TABLET (FP) PO SCH (22:24)
[2018-04-27] MEDS: chlordiazePOXIDE HCL 25 MG CAPSULE PO SCH ×3 (05:31→17:53)
[2018-04-27] MEDS: BUPRENORPHINE/NALOXONE 8 MG/2 MG FILM PACKET SL SCH ×3 (05:32→22:02)
[2018-04-27] MEDS ORDERED: BISACODYL 10 MG SUPP.RECT RC ONE (09:32)
--- NOTE | 2018-04-27 09:39 | PN ---
S CIWA - CIWA Score Nausea/Vomitin Muscle Tremors: 3 Anxiety: 2 Agitation: 2 Paroxysmal Sweats: 1-Minimal Palms Moist Orientation: 0-Oriented Tacttile Disturbances: 1-Very Mild Itch/Numbness Auditory Disturbances: 1-Very Mild Visual Disturbances: 0-None Headache: 2-Mild CIWA-Ar Total Score: 15 BHS Progress Note (SOAP) Subjective: alert,irritable,anxious,interrupted sleep,constipated Objective: 04/27/18 09:35 Vital Signs Temperature 97.9 F 04/27/18 09:13 Pulse Rate 74 04/27/18 09:13 Respiratory Rate 18 04/27/18 09:13 Blood Pressure 121/90 04/27/18 09:13 O2 Sat by Pulse Oximetry (%) Assessment: 04/27/18 09:36 withdrawal symptom but less Plan: continue detox,dulcolax suppository 1 now,patient would like to leave tomorrow in am to go to rehab
[2018-04-27] MEDS: NICOTINE 14 MG/24 HOURS TOPICAL PATCH TD SCH (11:17)
[2018-04-27] MEDS: PRENATAL VITAMINS W/ FOLIC ACID TABLET (FP) PO SCH (11:17)
[2018-04-27] MEDS: hydrOXYzine PAMOATE 50 MG CAPSULE (FP) PO PRN ×2 (12:31→22:05)
[2018-04-27] MEDS: chlordiazePOXIDE 5 MG CAPSULE PO SCH (22:01)
[2018-04-27] MEDS: SERTRALINE HCL 50 MG TABLET (FP) PO SCH (22:01)
[2018-04-27] MEDS: THIAMINE HCL 100 MG TABLET (FP) PO SCH (22:01)
[2018-04-28] MEDS: BUPRENORPHINE/NALOXONE 8 MG/2 MG FILM PACKET SL SCH ×3 (05:22→22:14)
[2018-04-28] MEDS: chlordiazePOXIDE 5 MG CAPSULE PO SCH ×3 (05:22→17:56)
--- NOTE | 2018-04-28 10:24 | PN ---
S Progress Note (SOAP) Subjective: alert,no complaint Objective: 04/28/18 10:22 Vital Signs Temperature 98.1 F 04/28/18 06:00 Pulse Rate 73 04/28/18 06:00 Respiratory Rate 18 04/28/18 06:00 Blood Pressure 108/64 04/28/18 06:00 O2 Sat by Pulse Oximetry (%) Assessment: 04/28/18 10:22 detox completed,no withdrawal symptom 04/28/18 10:23 Plan: stable for discharge,follow up with after care program as arrangement
--- NOTE | 2018-04-28 10:28 | DS ---
[facility] Detox Discharge Summary Admission Date: 04/25/18 Discharge Date: 04/28/18 - History Present History: Alcohol Dependence Additional Comments: follow up with after care program as arrangement Pertinent Past History: chronic low back pain suboxone maintenence - Physical Exam Results Vital Signs: Vital Signs Temperature 98.1 F 04/28/18 06:00 Pulse Rate 73 04/28/18 06:00 Respiratory Rate 18 04/28/18 06:00 Blood Pressure 108/64 04/28/18 06:00 O2 Sat by Pulse Oximetry (%) Pertinent Admission Physical Exam Findings: withdrawal sins and symptom Vital Signs Temperature 98.1 F 04/28/18 06:00 Pulse Rate 73 04/28/18 06:00 Respiratory Rate 18 04/28/18 06:00 Blood Pressure 108/64 04/28/18 06:00 O2 Sat by Pulse Oximetry (%) Laboratory Last Values WBC 5.2 K/mm3 (4.0-10.0) 04/26/18 07:30 RBC 3.19 M/mm3 (3.60-5.2) L 04/26/18 07:30 Hgb 11.1 GM/dL (10.7-15.3) 04/26/18 07:30 Hct 32.3 % (32.4-45.2) L 04/26/18 07:30 MCV 101.3 fl (80-96) H 04/26/18 07:30 MCH 34.7 pg (25.7-33.7) H 04/26/18 07:30 MCHC 34.2 g/dl (32.0-36.0) 04/26/18 07:30 RDW 12.9 % (11.6-15.6) 04/26/18 07:30 Plt Count 335 K/MM3 (134-434) D 04/26/18 07:30 MPV 8.1 fl (7.5-11.1) D 04/26/18 07:30 Sodium 142 mmol/L (136-145) 04/26/18 07:30 Potassium 4.0 mmol/L (3.5-5.1) 04/26/18 07:30 Chloride 107 mmol/L (98-107) 04/26/18 07:30 Carbon Dioxide 27 mmol/L (21-32) 04/26/18 07:30 Anion Gap 8 (8-16) 04/26/18 07:30 BUN 9 mg/dL (7-18) 04/26/18 07:30 Creatinine 0.5 mg/dL (0.55-1.02) L 04/26/18 07:30 Creat Clearance w eGFR > 60 (>60) 04/26/18 07:30 Random Glucose 90 mg/dL (74-106) 04/26/18 07:30 Calcium 8.3 mg/dL (8.5-10.1) L 04/26/18 07:30 Total Bilirubin 0.5 mg/dL (0.2-1.0) D 04/26/18 07:30 AST 84 U/L (15-37) H 04/26/18 07:30 ALT 62 U/L (12-78) 04/26/18 07:30 Alkaline Phosphatase 96 U/L (45-117) 04/26/18 07:30 Total Protein 6.0 g/dl (6.4-8.2) L 04/26/18 07:30 Albumin 3.1 g/dl (3.4-5.0) L 04/26/18 07:30 Urine Color Ltyellow 04/26/18 14:00 Urine Appearance Slcloudy 04/26/18 14:00 Urine pH 7.0 (5.0-8.0) 04/26/18 14:00 Ur Specific [place] 1.006 (1.001-1.035) 04/26/18 14:00 Urine Protein Negative (NEGATIVE) 04/26/18 14:00 Urine Glucose (UA) Negative (NEGATIVE) 04/26/18 14:00 Urine Ketones Negative (NEGATIVE) 04/26/18 14:00 Urine Blood Negative (NEGATIVE) 04/26/18 14:00 Urine Nitrite Negative (NEGATIVE) 04/26/18 14:00 Urine Bilirubin Negative (<2.0 mg/dL) 04/26/18 14:00 Urine Urobilinogen Negative mg/dL (0.2-1.0) 04/26/18 14:00 Ur Leukocyte Esterase Negative (NEGATIVE) 04/26/18 14:00 RPR Titer Nonreactive (NONREACTIVE) 04/26/18 07:30 - Treatment Hospital Course: Detox Protocol Followed, Detoxed Safely, Responded well, Discharged Condition Good Patient has Accepted a Rehab Referral to: declined - Medication Discharge Medications: Ambulatory Orders Buprenorphine HCl/Naloxone HCl [Suboxone 8 mg-2 mg Sl Tablets] 1 each SL TID 04/07 Sertraline HCl [Zoloft -] 100 mg PO HS #30 tablet 04/26/18 - Diagnosis (1) Alcohol dependence with withdrawal Current Visit: Yes Status: Acute Qualifiers: Complication of substance-induced condition: uncomplicated Qualified Code(s ): F10.230 - Alcohol dependence with withdrawal, uncomplicated (2) Encounter for monitoring Suboxone maintenance therapy Current Visit: Yes Status: Acute (3) Chronic back pain Current Visit: Yes Status: Chronic - AMA Did Patient Leave Against Medical Advice: No
[2018-04-28] MEDS: PRENATAL VITAMINS W/ FOLIC ACID TABLET (FP) PO SCH (10:33)
[2018-04-28] MEDS: ACETAMINOPHEN 325 MG TABLET (FP) PO PRN (11:09)
[2018-04-28] MEDS: NICOTINE 14 MG/24 HOURS TOPICAL PATCH TD SCH (12:58)
--- NOTE | 2018-04-28 15:00 | PN ---
S Progress Note Note: discharge on hold for safety of the patient for follow up care,will monitor patient for 24 hrs, discharge in am
[2018-04-28] MEDS: THIAMINE HCL 100 MG TABLET (FP) PO SCH (22:14)
[2018-04-28] MEDS: SERTRALINE HCL 50 MG TABLET (FP) PO SCH (22:14)
[2018-04-28] MEDS: chlordiazePOXIDE HCL 10 MG CAPSULE PO SCH (22:14)
[2018-04-28] MEDS: hydrOXYzine PAMOATE 50 MG CAPSULE (FP) PO PRN (22:17)
[2018-04-29] MEDS: ACETAMINOPHEN 325 MG TABLET (FP) PO PRN (05:20)
[2018-04-29] MEDS: chlordiazePOXIDE HCL 10 MG CAPSULE PO SCH (05:20)
[2018-04-29] MEDS: BUPRENORPHINE/NALOXONE 8 MG/2 MG FILM PACKET SL SCH (05:21)
[2018-04-29 06:42] VITALS: BP 106/65; PULSE 71; TEMP 98.1
--- NOTE | 2018-04-29 08:35 | PN ---
S Progress Note (SOAP) Subjective: alert,no complaint Objective: 04/29/18 08:34 Vital Signs Temperature 98.1 F 04/29/18 06:41 Pulse Rate 71 04/29/18 06:41 Respiratory Rate 16 04/29/18 06:41 Blood Pressure 106/65 04/29/18 06:41 O2 Sat by Pulse Oximetry (%) Assessment: 04/29/18 08:34 detox completed,no withdrawal symptom Plan: discharge today,follow up with after care program as arrangement
--- NOTE | 2018-04-29 08:38 | DS ---
[facility] Detox Discharge Summary Admission Date: 04/25/18 Discharge Date: 04/29/18 - History Present History: Alcohol Dependence Additional Comments: follow up with after care program as arrangement Pertinent Past History: chronic low back pain suboxone maintence - Physical Exam Results Vital Signs: Vital Signs Temperature 98.1 F 04/29/18 06:41 Pulse Rate 71 04/29/18 06:41 Respiratory Rate 16 04/29/18 06:41 Blood Pressure 106/65 04/29/18 06:41 O2 Sat by Pulse Oximetry (%) Pertinent Admission Physical Exam Findings: withdrawal signs and symptom Vital Signs Temperature 98.1 F 04/29/18 06:41 Pulse Rate 71 04/29/18 06:41 Respiratory Rate 16 04/29/18 06:41 Blood Pressure 106/65 04/29/18 06:41 O2 Sat by Pulse Oximetry (%) Laboratory Last Values WBC 5.2 K/mm3 (4.0-10.0) 04/26/18 07:30 RBC 3.19 M/mm3 (3.60-5.2) L 04/26/18 07:30 Hgb 11.1 GM/dL (10.7-15.3) 04/26/18 07:30 Hct 32.3 % (32.4-45.2) L 04/26/18 07:30 MCV 101.3 fl (80-96) H 04/26/18 07:30 MCH 34.7 pg (25.7-33.7) H 04/26/18 07:30 MCHC 34.2 g/dl (32.0-36.0) 04/26/18 07:30 RDW 12.9 % (11.6-15.6) 04/26/18 07:30 Plt Count 335 K/MM3 (134-434) D 04/26/18 07:30 MPV 8.1 fl (7.5-11.1) D 04/26/18 07:30 Sodium 142 mmol/L (136-145) 04/26/18 07:30 Potassium 4.0 mmol/L (3.5-5.1) 04/26/18 07:30 Chloride 107 mmol/L (98-107) 04/26/18 07:30 Carbon Dioxide 27 mmol/L (21-32) 04/26/18 07:30 Anion Gap 8 (8-16) 04/26/18 07:30 BUN 9 mg/dL (7-18) 04/26/18 07:30 Creatinine 0.5 mg/dL (0.55-1.02) L 04/26/18 07:30 Creat Clearance w eGFR > 60 (>60) 04/26/18 07:30 Random Glucose 90 mg/dL (74-106) 04/26/18 07:30 Calcium 8.3 mg/dL (8.5-10.1) L 04/26/18 07:30 Total Bilirubin 0.5 mg/dL (0.2-1.0) D 04/26/18 07:30 AST 84 U/L (15-37) H 04/26/18 07:30 ALT 62 U/L (12-78) 04/26/18 07:30 Alkaline Phosphatase 96 U/L (45-117) 04/26/18 07:30 Total Protein 6.0 g/dl (6.4-8.2) L 04/26/18 07:30 Albumin 3.1 g/dl (3.4-5.0) L 04/26/18 07:30 Urine Color Ltyellow 04/26/18 14:00 Urine Appearance Slcloudy 04/26/18 14:00 Urine pH 7.0 (5.0-8.0) 04/26/18 14:00 Ur Specific [place] 1.006 (1.001-1.035) 04/26/18 14:00 Urine Protein Negative (NEGATIVE) 04/26/18 14:00 Urine Glucose (UA) Negative (NEGATIVE) 04/26/18 14:00 Urine Ketones Negative (NEGATIVE) 04/26/18 14:00 Urine Blood Negative (NEGATIVE) 04/26/18 14:00 Urine Nitrite Negative (NEGATIVE) 04/26/18 14:00 Urine Bilirubin Negative (<2.0 mg/dL) 04/26/18 14:00 Urine Urobilinogen Negative mg/dL (0.2-1.0) 04/26/18 14:00 Ur Leukocyte Esterase Negative (NEGATIVE) 04/26/18 14:00 RPR Titer Nonreactive (NONREACTIVE) 04/26/18 07:30 - Treatment Hospital Course: Detox Protocol Followed, Detoxed Safely, Responded well, Discharged Condition Good, Rehab Referral Accepted Patient has Accepted a Rehab Referral to: rehab in [place] - Medication Discharge Medications: Ambulatory Orders Buprenorphine HCl/Naloxone HCl [Suboxone 8 mg-2 mg Sl Tablets] 1 each SL TID 04/07 Sertraline HCl [Zoloft -] 100 mg PO HS #30 tablet 04/26/18 - Diagnosis (1) Alcohol dependence with withdrawal Current Visit: Yes Status: Acute Qualifiers: Complication of substance-induced condition: uncomplicated Qualified Code(s ): F10.230 - Alcohol dependence with withdrawal, uncomplicated (2) Encounter for monitoring Suboxone maintenance therapy Current Visit: Yes Status: Acute (3) Chronic back pain Current Visit: Yes Status: Chronic - AMA Did Patient Leave Against Medical Advice: No
== END 2018-04-29 09:04 | disposition home or self-care (01) | DRG 897 ==
LOC: YASAS 15:53 → Y6N 20:30
PROVIDERS: ADMIT Surgery; ATTEND Surgery
PROC: HZ2ZZZZ Detoxification Services for Substance Abuse Treatment (ICD-10-PCS; principal; 2018-04-25)
DX: F10.230 Alcohol dependence with withdrawal, uncomplicated (principal); F11.20 Opioid dependence, uncomplicated; F10.220 Alcohol dependence with intoxication, uncomplicated; F41.9 Anxiety disorder, unspecified; M54.5 Low back pain; G89.29 Other chronic pain; Z86.69 Personal history of other diseases of the nervous system and sense organs
CPT/HCPCS: 36415; 80053; 81003; 85027; 86593; 93005; 93010